=== PATIENT | female | born 2000 | race Two or more races ===

== ENCOUNTER 2021-05-20 20:51 | Emergency (ER) | payer OTHER ==
[~2021-05-20] VITALS: Ht 167.6 cm; Wt 79.8 kg
[2021-05-20] MEDS ORDERED: IRON18 MG PO (21:09)
== END 2021-05-20 22:40 | disposition home or self-care (01) ==
LOC: ED 20:51
DX: S09.90XA Unspecified injury of head, initial encounter (principal); W22.8XXA Striking against or struck by other objects, initial encounter; Z88.8 Allergy status to other drugs, medicaments and biological substances; Z88.5 Allergy status to narcotic agent
CPT/HCPCS: 70450; 72125; 99283-25

== ENCOUNTER 2021-10-14 08:48 | Emergency (ER) | payer OTHER ==
[~2021-10-14] VITALS: Ht 167.6 cm; Wt 77.6 kg
[~2021-10-14 08:48] MED LIST: IRON18 MG PO
== END 2021-10-14 11:38 | disposition home or self-care (01) ==
LOC: ED 08:48
DX: R10.31 Right lower quadrant pain (principal); D64.9 Anemia, unspecified; Z88.8 Allergy status to other drugs, medicaments and biological substances; Z88.5 Allergy status to narcotic agent
CPT/HCPCS: 74177; 80053; 81001; 83690; 84703; 85025; 99284-25; J7030; Q9967

== ENCOUNTER 2023-09-07 18:20 | Emergency (ER) | payer OTHER ==
[~2023-09-07] VITALS: Ht 167.6 cm; Wt 77.6 kg
--- OUTSIDE RECORDS SUMMARY | 2023-09-07 18:28 | XMS ---
PreManage Notification: KATHY OLIVEIRA Security Dining Room Maid Events No recent Security Events currently on file CRITERIA MET - [facility] - 3 Facilities in 90 Days CARE PROVIDERS James Reynaga Community Health Worker 06/28/2020-[facility] - PHONE: [phone] -, Leonardo- Dentist: Marine Operations Coordinator [facility] PHONE: [phone] Justin has no Care Guidelines for this patient. E.D. VISIT COUNT ([address] [facility] 1 [facility] 1 [facility] 1 [facility] TOTAL 4 NOTE: Visits indicate total known visits. ED/UCC VISIT TRACKING (12 MO.) 09/07/2023 18:21 [facility] [place] TYPE: Emergency COMPLAINT: - ABD PAIN 07/18/2023 22:04 [facility] TYPE: Emergency DIAGNOSES: - Acute gastritis without bleeding - Abdominal Pain 07/02/2023 05:51 [facility] TYPE: Emergency COMPLAINT: - Left lower quadrant abdominal pain (Primary Dx); Constipation, unspecified constipation type DIAGNOSES: - Constipation, unspecified - Constipation, unspecified - Left lower quadrant pain - Left lower quadrant pain - Abdominal Pain 12/17/2022 18:48 [facility] Susie Sotomayor TYPE: Emergency DIAGNOSES: - Dehydration - Hypokalemia - Medical Problem (Minor) INPATIENT VISIT TRACKING (12 MO.) No inpatient visits to display in this time frame [email or web address]
[2023-09-07 18:45] LABS: BILIRUBIN, URINE NEGATIVE (negative); BLOOD/HGB, URINE NEGATIVE (Negative); KETONE, URINE NEGATIVE (Negative); LEUK ESTERASE, URINE NEGATIVE (negative); NITRITE, URINE NEGATIVE (negative)
[2023-09-07] MEDS ORDERED: HYDROXYZINE PA100 MG PO (18:45)
[2023-09-07 19:11] LABS: BASOPHILS 0.8 % (0-2); EOSINOPHILS 1.6 % (0-6); HEMATOCRIT 36.6 % (35.0-50.0); HEMOGLOBIN 12.5 g/dL (12.0-18.0); LYMPHOCYTES 27.6 % (24-44); MCH 28.3 (27-36); MCV 83.1 fl (81-99); MONOCYTES 6.6 % (0-12); NEUTROPHILS 63.4 % (39-80); PLATELET COUNT 275 K/uL (140-440); RBC 4.41 M/ul (4.3-5.7); RDW 15.1 (10.5-15.0)
[2023-09-07 19:23] LABS: ALBUMIN/GLOBULIN RATIO 1.33 (1.1-2.4); ANION GAP 14.8 (7-21); BILIRUBIN, TOTAL 0.4 ng/dL (0.2-1.0); BUN/CREATININE RATIO 14.54 (6.0-28.6); CALCIUM 9.1 mg/dL (8.5-10.1); CREATININE, SERUM 0.55 mg/dL (0.55-1.02); POTASSIUM 3.8 mmol/L (3.5-5.1)
[2023-09-07] MEDS ORDERED: TRAMADOL HCL50 MG PO (20:22)
[2023-09-07 20:46] VITALS: BP 116/83
== END 2023-09-07 20:47 | disposition home or self-care (01) ==
LOC: ED 18:20
PROVIDERS: Emergency Medicine
DX: N80.00 Endometriosis of the uterus, unspecified (principal); Z88.6 Allergy status to analgesic agent; Z88.5 Allergy status to narcotic agent; Z88.8 Allergy status to other drugs, medicaments and biological substances
CPT/HCPCS: 36415; 74177; 80053; 81003; 84703; 85025; 99284-25; A9270; J7121; Q9967